=== PATIENT | male | born 1945 | race Caucasian/White ===

== ENCOUNTER 2016-08-19 16:27 | Emergency (ER) | payer MEDICARE | END 2016-08-19 18:18 | disposition home or self-care (01) | LOC: FER 16:27 | DX: S06.0X0A Concussion without loss of consciousness, initial encounter (principal); E11.9 Type 2 diabetes mellitus without complications; I10 Essential (primary) hypertension; Z79.84 Long term (current) use of oral hypoglycemic drugs; Z79.899 Other long term (current) drug therapy; W11.XXXA Fall on and from ladder, initial encounter; Y92.009 Unspecified place in unspecified non-institutional (private) residence as the place of occurrence of the external cause | CPT/HCPCS: 70450; 72125 ==

== ENCOUNTER → 2020-07-04 | Day surgery (SDC) | payer MEDICARE ==
[~2020-07-04] MED LIST: ASPIRIN EC81 MG PO; CBD OIL SL; COZAAR100 MG PO; FARXIGA5 MG PO; FLONASE ALLER15.8 ML; GLUCOTROL10 MG PO; JANUVIA50 MG PO; MELOXICAM15 MG PO; METFORMIN HCL500 MG PO; NORCO 5-325 TA1 EACH PO; NORVASC5 MG PO; OMEGA 3 500 SO1 EACH PO; PRAVASTATIN SOD40 MG PO; PROTONIX 40MG T40 MG PO; SINGULAIR10 MG PO; ZOFRAN4 MG PO
[2020-07-04 08:55] LABS: HCT 32.1 % (42.0-52.0); HGB 10.9 g/dl (13.2-18.0); MCH 33.4 pg (25.0-31.0); MCV 98.5 fL (78.0-100.0); MPV 9.7 fL (6.0-9.5); RBC 3.26 M/uL (4.70-6.00); RDW 12.9 % (11.5-14.0); WBC 5.3 K/uL (4.0-10.5)
[2020-07-04 09:48] LABS: ALBUMIN 3.6 g/dL (3.4-5.0); BILIRUBIN - TOTAL 0.4 mg/dL (0.2-1.0); BUN/CREAT RATIO (CALC) 18.9 RATIO; CREATININE 1.48 mg/dL (0.67-1.17); GLOBULIN (CALCULATION) 3.5 g/dL; POTASSIUM 4.2 mmol/L (3.5-5.1); TOTAL PROTEIN 7.1 g/dL (6.4-8.2)
== END | disposition home or self-care (01) ==
LOC: FAS 08:03
PROVIDERS: Surgery
DX: I87.2 Venous insufficiency (chronic) (peripheral) (principal); K21.9 Gastro-esophageal reflux disease without esophagitis; E11.9 Type 2 diabetes mellitus without complications
CPT/HCPCS: 36415; 80053; J2250; J3010; J7120

== ENCOUNTER → 2021-01-17 | Day surgery (SDC) | payer MEDICARE ==
[~2021-01-17] VITALS: Ht 175.3 cm; Wt 90.9 kg
[2021-01-17 10:08] LABS: HCT 32.4 % (42.0-52.0); HGB 11.1 g/dl (13.2-18.0); MCH 31.7 pg (25.0-31.0); MCHC 34.3 g/dL (32.0-36.0); MCV 92.6 fL (78.0-100.0); MPV 9.4 fL (6.0-9.5); RBC 3.5 M/uL (4.70-6.00); RDW 13.2 % (11.5-14.0); WBC 4.9 K/uL (4.0-10.5)
[2021-01-17 10:21] LABS: ALBUMIN 3.8 g/dL (3.4-5.0); BILIRUBIN - TOTAL 0.5 mg/dL (0.2-1.0); CREATININE 1.62 mg/dL (0.67-1.17); GLOBULIN (CALCULATION) 3.8 g/dL; POTASSIUM 4.9 mmol/L (3.5-5.1); TOTAL PROTEIN 7.6 g/dL (6.4-8.2)
== END | disposition home or self-care (01) ==
LOC: FAS 08:49
PROVIDERS: Surgery
DX: I87.2 Venous insufficiency (chronic) (peripheral) (principal); J98.4 Other disorders of lung; E11.9 Type 2 diabetes mellitus without complications; E78.5 Hyperlipidemia, unspecified; D11.9 Benign neoplasm of major salivary gland, unspecified; Z79.84 Long term (current) use of oral hypoglycemic drugs; Z79.82 Long term (current) use of aspirin; Z79.899 Other long term (current) drug therapy; Z90.79 Acquired absence of other genital organ(s); Z90.49 Acquired absence of other specified parts of digestive tract
CPT/HCPCS: 36415; 71045; 76000; 80053; C1788; J0690; J1100; J1644; J2250; J2405; J2704; J3010; J7120